=== PATIENT | female | born 1990 | race Caucasian/White ===

== ENCOUNTER → 2016-12-25 | Outpatient (REF) | payer BC | LOC: M SFHCWAGY 14:34 | PROVIDERS: ATTEND Nurse Practitioner Women's Health | DX: Z12.4 Encounter for screening for malignant neoplasm of cervix (principal) ==

== ENCOUNTER → 2020-02-15 | Outpatient (CLI) | payer BC | LOC: M LABSMTC 13:21 | PROVIDERS: ATTEND Family Medicine | DX: Z11.59 Encounter for screening for other viral diseases (principal); Z20.828 Contact with and (suspected) exposure to other viral communicable diseases | CPT/HCPCS: C9803; U0003 ==

== ENCOUNTER → 2022-04-13 | Outpatient (CLI) | payer BC, OTHER, SELFPAY | LOC: M RAD 13:06 | PROVIDERS: ATTEND Physician Assistant Medical | DX: N83.292 Other ovarian cyst, left side (principal) ==

== ENCOUNTER → 2023-09-11 | Outpatient (CLI) | payer BC ==
[2023-09-11 10:36] LABS: TOTAL 25(OH) VITAMIN D 40.4 NG/ML (20.0-100.0)
== END ==
LOC: M RAD 07:14
PROVIDERS: ATTEND Registered Nurse
DX: R93.2 Abnormal findings on diagnostic imaging of liver and biliary tract (principal); D49.59 Neoplasm of unspecified behavior of other genitourinary organ; R97.1 Elevated cancer antigen 125 [CA 125]; E55.9 Vitamin D deficiency, unspecified

== ENCOUNTER → 2023-10-16 | Outpatient (CLI) | payer BC ==
[2023-10-16 18:37] LABS: FREE T4 1.17 NG/DL (0.89-1.76)
[2023-10-16 18:38] LABS: FOLLICLE STIMULATING HORMONE 5.7 mIU/ML; THYROID STIMULATING HORMONE 0.917 uIU/ML (0.55-4.78)
[2023-10-16 18:39] LABS: ESTRADIOL 91.8 PG/ML; LUTEINIZING HORMONE 8.1 mIU/ML; PROLACTIN 5.11 NG/ML
== END ==
LOC: M PLALAB 16:47
PROVIDERS: ATTEND Nurse Practitioner Family
DX: N83.202 Unspecified ovarian cyst, left side (principal)

== ENCOUNTER 2024-01-15 12:10 | Day surgery (SDC) | payer BC ==
[~2024-01-15] VITALS: Ht 165.1 cm; Wt 52.9 kg
[~2024-01-15 12:10] MED LIST: K 10100T PO; MAGN200T PO; RIZA10TA2 PO; VITA-243 PO; VITA100093 PO
[2024-01-15] MEDS ORDERED: LR 1,000 ML IV SCH ×2 (12:30→16:05)
[2024-01-15] MEDS ORDERED: LIDOCAINE 2% 100MG/5ML SDV (FOR ANES.) As Ordered ONE (12:49)
[2024-01-15] MEDS ORDERED: propofoL 200 MG/20 ML VIAL As Ordered ONE (12:49)
[2024-01-15] MEDS ORDERED: ROCURONIUM BROMIDE 50MG/5ML VIAL As Ordered ONE (12:49)
[2024-01-15] MEDS ORDERED: fentaNYL 250 MCG/5 ML INJECTION As Ordered ONE (12:49)
[2024-01-15] MEDS ORDERED: MIDAZOLAM INJ 2MG/2ML VIAL As Ordered ONE (12:49)
[2024-01-15 13:00] LABS: HEMATOCRIT 42.5 % (36.0-47.0); HEMOGLOBIN 14.7 g/dl (12.0-15.5); MEAN CORPUSCULAR HEMOGLOBIN 31.3 pg (27.0-33.0); MEAN CORPUSCULAR HGB CONC 34.6 g/dl (32.0-36.5); MEAN CORPUSCULAR VOLUME 90.6 fl (80.0-96.0); PLATELET COUNT, AUTOMATED 289 10^3/uL (150-450); RED BLOOD COUNT 4.69 10^6/uL (4.00-5.40); WHITE BLOOD COUNT 8.1 10^3/uL (4.0-10.0)
[2024-01-15] MEDS ORDERED: ePHEDrine SULFATE 25 MG/5 ML(5MG/ML) SYRINGE As Ordered ONE (14:02)
[2024-01-15] MEDS: ceFAZolin 2 GM/D5W 50 ML IV BAG As Ordered ONE (14:25)
[2024-01-15] MEDS: METHYLENE BLUE 0.5% (5MG/ML) 10 ML AMP (PROVAYBLUE) As Ordered ONE (14:25)
[2024-01-15] MEDS ORDERED: ACETAMINOPHEN 1000MG 100ML IV BAG As Ordered ONE (14:36)
[2024-01-15] MEDS ORDERED: KETAMINE HCL 200MG/20ML VIAL As Ordered ONE (14:39)
[2024-01-15] MEDS ORDERED: METOCLOPRAMIDE INJ 10MG/2ML VIAL As Ordered ONE (14:39)
[2024-01-15] MEDS ORDERED: SUGAMMADEX SODIUM 500 MG/5 ML VIAL (BRIDION) As Ordered ONE (14:39)
[2024-01-15] MEDS ORDERED: KETOROLAC 60MG 2ML VIAL As Ordered ONE (14:39)
[2024-01-15] MEDS ORDERED: ONDANSETRON 4MG 2ML VIAL As Ordered ONE (14:39)
[2024-01-15] MEDS ORDERED: ONDANSETRON 4MG 2ML VIAL IV PRN (15:45)
[2024-01-15] MEDS: fentaNYL 100 MCG/2 ML INJECTION IV PRN (16:06)
[2024-01-15] MEDS ORDERED: PERCOCET 5MG/325MG TAB PO PRN (16:10)
[2024-01-15] MEDS: oxyCODONE 5MG TAB PO PRN (16:18)
[2024-01-15] MEDS: MORPHINE 2 MG/ML 1ML VIAL IV PRN (16:22)
[2024-01-15] MEDS ORDERED: IBUP-1022 PO (16:34)
[2024-01-15] MEDS ORDERED: OXYC1TAB23 PO (16:35)
[2024-01-15 17:20] VITALS: BP 126/68; TEMP 98.2; O2SAT 100
== END 2024-01-15 17:44 | disposition home or self-care (01) ==
LOC: M SDC 12:10
PROVIDERS: ATTEND Specialist
DX: D27.1 Benign neoplasm of left ovary (principal); N83.292 Other ovarian cyst, left side; N80.9 Endometriosis, unspecified; J30.2 Other seasonal allergic rhinitis; Z88.8 Allergy status to other drugs, medicaments and biological substances; F41.9 Anxiety disorder, unspecified; G43.909 Migraine, unspecified, not intractable, without status migrainosus; F17.200 Nicotine dependence, unspecified, uncomplicated
CPT/HCPCS: 36415; 58662; 81025; 85027; 88305; J0131; J0665; J1100; J1885; J2250; J2405; J2765; J3010; S2900

== ENCOUNTER → 2024-04-22 | Outpatient (REF) ==
[~2024-04-22] MED LIST changes: +IBUP-1022 PO; +OXYC1TAB23 PO
== END ==
LOC: M EMP 09:07
PROVIDERS: ATTEND Family Medicine
DX: R09.89 Other specified symptoms and signs involving the circulatory and respiratory systems (principal)

== ENCOUNTER → 2024-05-19 | Outpatient (REF) | LOC: M EMP 14:36 | PROVIDERS: ATTEND Family Medicine | DX: Z11.52 Encounter for screening for COVID-19 (principal) ==

== ENCOUNTER → 2024-07-14 | Outpatient (CLI) | payer BC ==
[2024-07-14 19:32] LABS: HEMATOCRIT 36.8 % (36.0-47.0); HEMOGLOBIN 12.4 g/dl (12.0-15.5); MEAN CORPUSCULAR HEMOGLOBIN 31.3 pg (27.0-33.0); MEAN CORPUSCULAR HGB CONC 33.7 g/dl (32.0-36.5); MEAN CORPUSCULAR VOLUME 92.9 fl (80.0-96.0); PLATELET COUNT, AUTOMATED 291 10^3/uL (150-450); RED BLOOD COUNT 3.96 10^6/uL (4.00-5.40); WHITE BLOOD COUNT 7.2 10^3/uL (4.0-10.0)
[2024-07-14 19:43] LABS: ERYTHROCYTE SEDIMENTATION RATE 2 mm/hr (0-20)
[2024-07-14 19:52] LABS: RHEUMATOID FACTOR QUANT 6.6 IU/ML (<14)
[2024-07-14 19:56] LABS: ALBUMIN 3.9 G/DL (3.2-5.2); ALKALINE PHOSPHATASE 66 U/L (35-104); ALT/SGPT 10 U/L (7.0-40); AST/SGOT 8 U/L (<34); BILIRUBIN,TOTAL 0.4 MG/DL (0.3-1.2); BLOOD UREA NITROGEN 10 MG/DL (9-23); C REACTIVE PROTEIN QUANTITATIV < 0.40 MG/DL (<1.0); CALCIUM LEVEL 9.1 MG/DL (8.5-10.1); CARBON DIOXIDE LEVEL 29 MMOL/L (20-31); CHLORIDE LEVEL 107 MMOL/L (98-107); CHOLESTEROL LEVEL 160 MG/DL (<200); CHOLESTEROL RISK RATIO 2.59 (<5); CREATININE FOR GFR 0.77 MG/DL (0.55-1.30); FERRITIN 7.4 NG/ML (7.3-270.7); FOLATE 15.71 NG/ML (>5.4); FREE T3 2.8 PG/ML (2.3-4.2); FREE T4 1.04 NG/DL (0.89-1.76); GLOMERULAR FILTRATION RATE > 60.0 (>60); GLUCOSE, FASTING 97 MG/DL (60-100); HDL CHOLESTEROL 61.7 MG/DL (>40); IRON (FE) 87 UG/DL (50-170); LDL CHOLESTEROL 79.1 MG/DL (<100); NON-HDL-C 98.3 MG/DL; POTASSIUM SERUM 3.7 MMOL/L (3.5-5.1); SODIUM LEVEL 141 MMOL/L (136-145); THYROID STIMULATING HORMONE 0.932 uIU/ML (0.55-4.78); THYROXINE (T4) 7.2 UG/DL (4.5-10.9); TOTAL 25(OH) VITAMIN D 38.4 NG/ML (20.0-100.0); TRIGLYCERIDES LEVEL 96 MG/DL (<150); URIC ACID 4.2 MG/DL (3.1-7.8); VITAMIN B12 LEVEL 584 PG/ML (211-911)
[2024-07-17 12:53] LABS: ANA SCREEN, IFA NEGATIVE (NEGATIVE)
[2024-07-17 15:07] LABS: EBV VIRAL CAPSID AG IGM < 36.00 U/mL (<36.00)
[2024-07-18 01:41] LABS: CYCLIC CITRULLINATED PEPTIDE < 16 UNITS (<20)
== END ==
LOC: M WUC 15:20
PROVIDERS: ATTEND Registered Nurse
DX: R53.83 Other fatigue (principal); E55.9 Vitamin D deficiency, unspecified; E78.00 Pure hypercholesterolemia, unspecified; M13.0 Polyarthritis, unspecified; M25.512 Pain in left shoulder

== ENCOUNTER → 2024-07-15 | Outpatient (CLI) | payer BC | LOC: M WHC 07:14 | PROVIDERS: ATTEND Specialist | DX: N83.202 Unspecified ovarian cyst, left side (principal) ==

== ENCOUNTER → 2025-05-04 | Outpatient (REF) | payer BC ==
[2025-05-04 19:08] LABS: C REACTIVE PROTEIN QUANTITATIV < 0.50 MG/DL (<1.0); CPK CREATINE PHOSPHOKINASE 51 U/L (34-145)
[2025-05-04 19:10] LABS: IMMUNOGLOBULIN E 5.5 IU/ML (0-378); THYROID PEROXIDASE ANTIBODY < 28.0 U/ML (<60.0)
[2025-05-06 20:38] LABS: T P ELECTROPHORESIS SO 7.0 g/dL (6.1-8.1)
[2025-05-07 13:40] LABS: EBV AB TO NUCLEAR ANTIGEN 504.00 U/mL (<18.00); EBV VIRAL CAPSID AG IGG 577.00 U/mL (<18.00); EBV VIRAL CAPSID AG IGM < 36.00 U/mL (<36.00)
== END ==
LOC: M LABDRAWC 17:35
PROVIDERS: ATTEND Registered Nurse
DX: M79.10 Myalgia, unspecified site (principal); R53.83 Other fatigue

== ENCOUNTER → 2025-05-07 | Outpatient (REF) | payer BC | LOC: M LAB REF 11:50 | PROVIDERS: ATTEND Registered Nurse | DX: Z77.010 Contact with and (suspected) exposure to arsenic (principal) ==

== ENCOUNTER → 2025-05-24 | Outpatient (REF) ==
[~2025-05-24] MED LIST changes: -IBUP-1022 PO; +IBUP600T42 PO
== END ==
LOC: M EMP 10:02
PROVIDERS: ATTEND Family Medicine